=== PATIENT | male | born 1985 | race Caucasian/White ===

== ENCOUNTER 2017-06-12 15:42 | Emergency (ER) | payer MEDICAID ==
[~2017-06-12] VITALS: Ht 185.4 cm; Wt 181.4 kg
[2017-06-12] MEDS ORDERED: IBUPROFEN 800800 MG PO (16:19)
[2017-06-12] MEDS ORDERED: AMOXICILLIN875 MG PO (16:19)
[2017-06-12 16:29] VITALS: BP 160/99
== END 2017-06-12 16:30 | disposition home or self-care (01) ==
LOC: M.ERS 15:42
DX: H66.91 Otitis media, unspecified, right ear (principal)

== ENCOUNTER 2017-08-31 21:58 | Emergency (ER) | payer MEDICAID ==
[~2017-08-31] VITALS: Ht 185.4 cm; Wt 181.4 kg
[~2017-08-31 21:58] MED LIST: AMOXICILLIN875 MG PO; IBUPROFEN 800800 MG PO
[2017-08-31 23:11] LABS: ABSOLUTE BASOPHILS 0.1 thou/uL (0.0-0.2); ABSOLUTE EOSINOPHILS 0.3 thou/uL (0.0-0.7); ABSOLUTE LYMPHOCYTES 1.7 thou/uL (0.8-5.3); ABSOLUTE MONOCYTES 0.9 thou/uL (0.0-1.2); ABSOLUTE NEUTROPHILS 4.9 thou/uL (1.6-8.1); BASOPHILS 0.7 %; EOSINOPHILS 3.5 %; HEMATOCRIT 40.4 % (42.0-52.0); HEMOGLOBIN 13.6 gm/dL (14.0-18.0); MCH 29.5 pg (26.0-34.0); MCHC 33.6 g/dL (28.0-37.0); MONOCYTES 11.5 %; MPV 7.7 fl. (7.2-11.1); NUCLEATED RBCS 0 /100WBC; PLATELET COUNT* 244 thou/uL (150-400); POLYS 62.3 %; RBC 4.59 mil/uL (4.50-6.00); RDW-CV 13.8 % (10.5-14.5); WBC 7.9 thou/uL (4.0-11.0)
[2017-08-31 23:13] LABS: CALCIUM 9.4 mg/dL (8.5-10.1); POTASSIUM 3.8 mmol/L (3.5-5.1)
[2017-08-31 23:20] LABS: ALBUMIN 3.5 g/dL (3.4-5.0); TOTAL BILIRUBIN 0.3 mg/dL (<0.1-1.0); TOTAL PROTEIN 7.3 g/dL (6.4-8.2)
[2017-09-01] MEDS ORDERED: APAP650 PO (00:42)
[2017-09-01] MEDS ORDERED: IBUPROFEN 800800 MG PO (00:42)
[2017-09-01 01:05] VITALS: BP 120/80
[2017-09-01] MEDS ORDERED: AMOXICILLIN875 MG PO (02:15)
== END 2017-09-01 01:06 | disposition home or self-care (01) ==
LOC: M.ERS 21:58
PROVIDERS: Emergency Medicine
DX: R50.9 Fever, unspecified (principal)

== ENCOUNTER 2017-09-03 10:22 | Emergency (ER) | payer MEDICAID ==
[~2017-09-03] VITALS: Ht 188 cm; Wt 181.4 kg
[~2017-09-03 10:22] MED LIST changes: +APAP650 PO
[2017-09-03] MEDS ORDERED: AUGMENTIN 875-1 EACH PO (12:24)
[2017-09-03] MEDS ORDERED: BUTALB-APAP-CA1 EACH PO (12:24)
[2017-09-03 12:49] VITALS: BP 109/55
== END 2017-09-03 12:49 | disposition home or self-care (01) ==
LOC: M.ERS 10:22
DX: J32.0 Chronic maxillary sinusitis (principal)

== ENCOUNTER 2018-01-02 23:59 | Emergency (ER) | payer MEDICAID ==
[~2018-01-02] VITALS: Ht 185.4 cm; Wt 181.4 kg
[~2018-01-02 23:59] MED LIST changes: +AUGMENTIN 875-1 EACH PO; +BUTALB-APAP-CA1 EACH PO
[2018-01-03] MEDS ORDERED: PREDNISONE 20 M20 M1 PO (00:21)
[2018-01-03] MEDS ORDERED: ELIMITE60 GM TOP (00:21)
[2018-01-03] MEDS ORDERED: IBUPROFEN 800800 MG PO (00:21)
[2018-01-03 00:45] VITALS: BP 139/83
== END 2018-01-03 00:48 | disposition home or self-care (01) ==
LOC: M.ERS 23:59
DX: F42.4 Excoriation (skin-picking) disorder (principal); L29.9 Pruritus, unspecified

== ENCOUNTER 2018-02-26 10:54 | Emergency (ER) | payer MEDICAID ==
[~2018-02-26] VITALS: Ht 188 cm; Wt 204.1 kg
[~2018-02-26 10:54] MED LIST changes: +ELIMITE60 GM TOP; +PREDNISONE 20 M20 M1 PO
[2018-02-26 10:58] VITALS: BP 133/76
[2018-02-26] MEDS ORDERED: KEFLEX500 M1 PO (11:18)
[2018-02-26] MEDS ORDERED: IBUPROFEN 800800 M1 PO (11:18)
[2018-02-26] MEDS ORDERED: ACETAMINOPHEN-1 EAC1 PO (11:18)
== END 2018-02-26 11:20 | disposition home or self-care (01) ==
LOC: M.ERS 10:54
DX: J02.9 Acute pharyngitis, unspecified (principal); H92.01 Otalgia, right ear

== ENCOUNTER 2018-08-28 02:11 | Emergency (ER) | payer MEDICAID ==
[~2018-08-28] VITALS: Ht 188 cm; Wt 181.4 kg
[~2018-08-28 02:11] MED LIST changes: +ACETAMINOPHEN-1 EAC1 PO; +IBUPROFEN 800800 M1 PO; +KEFLEX500 M1 PO
[2018-08-28 02:54] LABS: ABSOLUTE BASOPHILS 0.1 thou/uL (0.0-0.2); ABSOLUTE EOSINOPHILS 0.3 thou/uL (0.0-0.7); ABSOLUTE LYMPHOCYTES 3.3 thou/uL (0.8-5.3); ABSOLUTE MONOCYTES 0.8 thou/uL (0.0-1.2); ABSOLUTE NEUTROPHILS 6.9 thou/uL (1.6-8.1); BASOPHILS 0.6 %; EOSINOPHILS 2.9 %; HEMATOCRIT 38.4 % (42.0-52.0); LYMPHOCYTES 29.3 %; MCHC 33.9 g/dL (28.0-37.0); MCV 85.7 fL (80.0-100.0); MONOCYTES 6.7 %; MPV 8.1 fl. (7.2-11.1); NUCLEATED RBCS 0 /100WBC; PLATELET COUNT* 278 thou/uL (150-400); POLYS 60.5 %; RBC 4.48 mil/uL (4.50-6.00); RDW-CV 13.7 % (10.5-14.5); WBC 11.4 thou/uL (4.0-11.0)
[2018-08-28 03:00] LABS: ANION GAP 7 mmol/L (7-16); BUN 15 mg/dL (7-18); CALCIUM 8.5 mg/dL (8.5-10.1); CHLORIDE 106 mmol/L (98-107); CO2 29 mmol/L (21-32); CREATININE 0.9 mg/dL (0.6-1.3); GLUCOSE 154 mg/dL (70-99); POTASSIUM 3.9 mmol/L (3.5-5.1); SODIUM 142 mmol/L (136-145)
[2018-08-28 03:11] LABS: ALBUMIN 3.2 g/dL (3.4-5.0); ALKALINE PHOSPHATASE 104 U/L (46-116); LIPASE 99 U/L (73-393); NT-PRO BRAIN NAT PEPTIDE 349 pg/mL (<300); SGOT 14 U/L (15-37); SGPT 32 U/L (30-65); TOTAL BILIRUBIN 0.3 mg/dL (<0.1-1.0); TOTAL PROTEIN 6.5 g/dL (6.4-8.2); TROPONIN-I LEVEL <0.06 ng/mL (<0.06)
[2018-08-28] MEDS ORDERED: PROAIR HFA8.5 GM INH (03:35)
[2018-08-28 03:58] VITALS: BP 179/87
--- NOTE | 2018-08-30 13:26 | EKG ---
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
== END 2018-08-28 04:11 | disposition home or self-care (01) ==
LOC: M.ERS 02:11
PROVIDERS: Emergency Medicine
DX: R06.00 Dyspnea, unspecified (principal); R06.02 Shortness of breath

== ENCOUNTER 2018-10-15 00:58 | Emergency (ER) | payer MEDICAID ==
[~2018-10-15] VITALS: Ht 188 cm; Wt 181.4 kg
[~2018-10-15 00:58] MED LIST changes: +PROAIR HFA8.5 GM INH
[2018-10-15] MEDS ORDERED: AUGMENTIN 875-1 EACH PO (01:23)
[2018-10-15 01:25] VITALS: BP 148/89
[2018-10-16] MEDS ORDERED: CLEOCIN HCL300 MG PO (15:58)
[2018-10-16] MEDS ORDERED: HYDROXYZINE HCL25 M1 PO (15:58)
[2018-10-16] MEDS ORDERED: PREDNISONE50 MG PO (15:58)
[2018-10-16] MEDS ORDERED: IBUPROFEN 800800 M1 PO (16:16)
== END 2018-10-15 01:42 | disposition home or self-care (01) ==
LOC: M.ERS 00:58
DX: J02.9 Acute pharyngitis, unspecified (principal)

== ENCOUNTER 2018-10-16 15:24 | Emergency (ER) | payer MEDICAID ==
[~2018-10-16] VITALS: Ht 188 cm; Wt 181.4 kg
[2018-10-16 15:36] VITALS: BP 152/94
[2018-10-16] MEDS ORDERED: PREDNISONE50 MG PO (15:58)
[2018-10-16] MEDS ORDERED: CLEOCIN HCL300 MG PO (15:58)
[2018-10-16] MEDS ORDERED: HYDROXYZINE HCL25 M1 PO (15:58)
[2018-10-16] MEDS ORDERED: IBUPROFEN 800800 M1 PO (16:16)
== END 2018-10-16 16:20 | disposition home or self-care (01) ==
LOC: M.ERS 15:24
DX: L27.0 Generalized skin eruption due to drugs and medicaments taken internally (principal); T36.0X5A Adverse effect of penicillins, initial encounter; L30.9 Dermatitis, unspecified; Y92.9 Unspecified place or not applicable

== ENCOUNTER 2018-12-22 13:03 | Emergency (ER) | payer MEDICAID ==
[~2018-12-22] VITALS: Ht 188 cm; Wt 181.4 kg
[~2018-12-22 13:03] MED LIST changes: +CLEOCIN HCL300 MG PO; +HYDROXYZINE HCL25 M1 PO; +PREDNISONE50 MG PO
[2018-12-22] MEDS ORDERED: AFRIN15 ML NS (14:12)
[2018-12-22] MEDS ORDERED: CLARITIN10 MG PO (14:12)
[2018-12-22] MEDS ORDERED: MEDROLDOSEPACK PO (14:13)
[2018-12-22] MEDS ORDERED: IBUPROFEN 800800 M1 PO (14:16)
[2018-12-22 14:20] VITALS: BP 151/87
== END 2018-12-22 14:20 ==
LOC: M.ERS 13:03
DX: S30.861A Insect bite (nonvenomous) of abdominal wall, initial encounter (principal); L72.3 Sebaceous cyst; J06.9 Acute upper respiratory infection, unspecified; W57.XXXA Bitten or stung by nonvenomous insect and other nonvenomous arthropods, initial encounter; Y92.89 Other specified places as the place of occurrence of the external cause; Y93.89 Activity, other specified; Y99.8 Other external cause status

== ENCOUNTER 2019-04-19 14:07 | Emergency (ER) | payer MEDICAID ==
[~2019-04-19] VITALS: Ht 188 cm; Wt 181.4 kg
[~2019-04-19 14:07] MED LIST changes: +AFRIN15 ML NS; +CLARITIN10 MG PO; +MEDROLDOSEPACK PO
[2019-04-19] MEDS ORDERED: MEDROLDOSEPACK PO (15:32)
[2019-04-19 15:43] VITALS: BP 151/88
[2019-04-19] MEDS ORDERED: TRAMADOL 50 MG50 MG PO (15:45)
== END 2019-04-19 15:46 | disposition home or self-care (01) ==
LOC: M.ERS 14:07
DX: S76.011A Strain of muscle, fascia and tendon of right hip, initial encounter (principal); M54.5 Low back pain; Z88.0 Allergy status to penicillin; X58.XXXA Exposure to other specified factors, initial encounter; Y93.89 Activity, other specified; Y92.89 Other specified places as the place of occurrence of the external cause; Y99.8 Other external cause status

== ENCOUNTER 2019-09-14 21:36 | Emergency (ER) | payer MEDICAID ==
[~2019-09-14] VITALS: Ht 185.4 cm; Wt 181.4 kg
[~2019-09-14 21:36] MED LIST changes: +TRAMADOL 50 MG50 MG PO
[2019-09-14] MEDS ORDERED: ADDERALL XR 3030 MG PO (21:57)
[2019-09-14] MEDS ORDERED: LORCET 5-325 M1 EACH PO (21:57)
[2019-09-14] MEDS ORDERED: FLEXERIL PO (23:17)
[2019-09-14] MEDS ORDERED: TORADOL 10 MG T10 MG PO (23:17)
[2019-09-14 23:39] VITALS: BP 155/97
== END 2019-09-14 23:40 | disposition home or self-care (01) ==
LOC: M.ERS 21:36
DX: S39.012A Strain of muscle, fascia and tendon of lower back, initial encounter (principal); Z88.0 Allergy status to penicillin; W01.0XXA Fall on same level from slipping, tripping and stumbling without subsequent striking against object, initial encounter; Y93.89 Activity, other specified; Y92.512 Supermarket, store or market as the place of occurrence of the external cause; Y99.9 Unspecified external cause status

== ENCOUNTER 2019-11-12 14:28 | Inpatient (IN) | payer MEDICAID ==
[~2019-11-12] VITALS: Ht 188 cm; Wt 181.4 kg
[~2019-11-12 14:28] MED LIST changes: +ADDERALL XR 3030 MG PO; +FLEXERIL PO; +LORCET 5-325 M1 EACH PO; +TORADOL 10 MG T10 MG PO
[2019-11-12 14:30] VITALS: BP 141/88
[2019-11-12] MEDS ORDERED: TYLENOL325 M1 (14:44)
[2019-11-12] MEDS ORDERED: ADVIL200 M1 PO (14:44)
[2019-11-12] MEDS ORDERED: PROAIR HFA8.5 GM INH (14:51)
[2019-11-12 14:56] LABS: ABSOLUTE LYMPHOCYTES 1.5 thou/uL (0.8-5.3); ABSOLUTE MONOCYTES 0.6 thou/uL (0.0-1.2); ABSOLUTE NEUTROPHILS 4.6 thou/uL (1.6-8.1); BASOPHILS 0.6 %; EOSINOPHILS 0.6 %; LYMPHOCYTES 21.9 %; MCH 29.7 pg (26.0-34.0); MCHC 34.1 g/dL (28.0-37.0); MCV 87.1 fL (80.0-100.0); MONOCYTES 9.1 %; MPV 7.5 fl. (7.2-11.1); NUCLEATED RBCS 0 /100WBC; PLATELET COUNT* 203 thou/uL (150-400); POLYS 67.8 %; RBC 4.37 mil/uL (4.50-6.00); RDW-CV 13.7 % (10.5-14.5); WBC 6.8 thou/uL (4.0-11.0)
[2019-11-12 15:03] LABS: CALCIUM 8.2 mg/dL (8.5-10.1); CREATININE 1.2 mg/dL (0.6-1.3); POTASSIUM 3.7 mmol/L (3.5-5.1)
[2019-11-12 15:08] LABS: ALBUMIN 3.2 g/dL (3.4-5.0); TOTAL BILIRUBIN 0.4 mg/dL (<0.1-1.0); TOTAL PROTEIN 6.9 g/dL (6.4-8.2)
[2019-11-12 15:09] LABS: PROTIME 10.6 Seconds (9.20-11.50)
[2019-11-12 15:17] LABS: INFLUENZA A ANTIGEN Negative (Negative); INFLUENZA B ANTIGEN Negative (Negative)
[2019-11-12 15:54] LABS: BE -0.7 mmol/L (-2 to +3); PCO2 43.3 mmHg (35.0-45.0); PO2 112.3 mmHg (75.0-100.0); pH 7.374 (7.340-7.450)
[2019-11-12 16:35] VITALS: BP 106/54
[2019-11-12 17:00] VITALS: BP 127/80
[2019-11-12 17:50] LABS: URINE BILIRUBIN NEGATIVE (Negative); URINE BLOOD NEGATIVE (Negative); URINE CLARITY CLEAR; URINE COLOR YELLOW; URINE GLUCOSE-RANDOM 1+ (Negative); URINE KETONES NEGATIVE (Negative); URINE LEUKOCYTES-REFLEX NEGATIVE (Negative); URINE NITRITE-REFLEX NEGATIVE (Negative); URINE PROTEIN NEGATIVE (Negative); URINE UROBILINOGEN 0.2 E.U./dl (0.2-1.0)
[2019-11-12 19:50] VITALS: BP 137/92
[2019-11-13 00:12] VITALS: BP 138/85
[2019-11-13 04:00] VITALS: BP 130/78
[2019-11-13 04:22] LABS: HEMATOCRIT 38.8 % (42.0-52.0); HEMOGLOBIN 13.3 gm/dL (14.0-18.0); MCH 29.7 pg (26.0-34.0); MCHC 34.3 g/dL (28.0-37.0); MCV 86.5 fL (80.0-100.0); MPV 7.8 fl. (7.2-11.1); RBC 4.48 mil/uL (4.50-6.00); WBC 3.9 thou/uL (4.0-11.0)
[2019-11-13 04:49] LABS: ALBUMIN 3.1 g/dL (3.4-5.0); CALCIUM 8.7 mg/dL (8.5-10.1); CREATININE 1.2 mg/dL (0.6-1.3); MAGNESIUM 1.9 mg/dL (1.8-2.4); POTASSIUM 4.2 mmol/L (3.5-5.1); TOTAL BILIRUBIN 0.3 mg/dL (<0.1-1.0); TOTAL PROTEIN 7.1 g/dL (6.4-8.2)
[2019-11-13 08:55] VITALS: BP 136/80
[2019-11-13 20:00] VITALS: BP 131/71
[2019-11-14 05:06] LABS: GLYCOHEMOGLOBIN (HGB A1C) 7.8 % (4.8-5.6)
--- NOTE | 2019-11-14 09:26 | EKG ---
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 : 1985 Requested By: Patrice Will Order Number: [id number] MD: Bryce Hogan Measurements Intervals [place] Rate: 114 P: 32 ND: 172 QRS: 179 QRSD: 107 T: 52 QT: 343 QTc: 473 Interpretive Statements Sinus tachycardia Consider right ventricular hypertrophy Probable septal infarct, old Baseline wander in lead(s) II Compared to ECG 08/28/2018 02:22:32 Sinus rhythm no longer present Electronically Signed On 11-14-2019 9:26:16 CDT by Bryce Hogan [email or web address] <ELECTRONICALLY SIGNED> By: Bryce Hogan MD, FACC 11/14/19 0926 1435 1435 Bryce Hogan MD, FAC /EPI
== END 2019-11-13 22:15 | disposition left against medical advice (07) | DRG 871 ==
LOC: M.ERS 14:28 → M.2W 15:53 → M.TBA-ER 15:53 → M.2W 16:45
PROVIDERS: Nurse Practitioner Psychiatric/Mental Health; ADMIT Internal Medicine; ATTEND Internal Medicine
DX: A41.89 Other specified sepsis (principal); U07.1 COVID-19; J12.89 Other viral pneumonia; Z68.43 Body mass index [BMI] 50.0-59.9, adult; E11.65 Type 2 diabetes mellitus with hyperglycemia; E66.01 Morbid (severe) obesity due to excess calories; G47.33 Obstructive sleep apnea (adult) (pediatric); R06.03 Acute respiratory distress; R09.02 Hypoxemia; R00.0 Tachycardia, unspecified; Z79.899 Other long term (current) drug therapy; Z88.0 Allergy status to penicillin

== ENCOUNTER 2020-02-12 08:49 | Emergency (ER) | payer MEDICAID ==
[~2020-02-12] VITALS: Ht 188 cm; Wt 181.4 kg
[~2020-02-12 08:49] MED LIST changes: +ADVIL200 M1 PO; +TYLENOL325 M1
[2020-02-12 10:05] LABS: ABSOLUTE BASOPHILS 0.1 thou/uL (0.0-0.2); ABSOLUTE EOSINOPHILS 0.3 thou/uL (0.0-0.7); ABSOLUTE LYMPHOCYTES 2.5 thou/uL (0.8-5.3); ABSOLUTE MONOCYTES 1.2 thou/uL (0.0-1.2); ABSOLUTE NEUTROPHILS 7.3 thou/uL (1.6-8.1); BASOPHILS 1.1 %; EOSINOPHILS 2.8 %; HEMATOCRIT 37.5 % (42.0-52.0); HEMOGLOBIN 12.2 gm/dL (14.0-18.0); LYMPHOCYTES 21.6 %; MCH 28.4 pg (26.0-34.0); MCHC 32.6 g/dL (28.0-37.0); MCV 87.3 fL (80.0-100.0); MONOCYTES 10.6 %; MPV 7.5 fl. (7.2-11.1); NUCLEATED RBCS 0 /100WBC; PLATELET COUNT* 251 thou/uL (150-400); POLYS 63.9 %; RDW-CV 14.5 % (10.5-14.5); WBC 11.4 thou/uL (4.0-11.0)
[2020-02-12 10:09] LABS: CALCIUM 9.2 mg/dL (8.5-10.1); POTASSIUM 4.1 mmol/L (3.5-5.1)
[2020-02-12] MEDS ORDERED: BACTRIM DS TAB1 EAC1 PO (11:53)
[2020-02-12] MEDS ORDERED: NORCO 5-325 TA1 EAC2 PO (11:53)
[2020-02-12 12:04] VITALS: BP 152/86
== END 2020-02-12 12:05 | disposition home or self-care (01) ==
LOC: M.ERS 08:49
PROVIDERS: Emergency Medicine Emergency Medical Services
DX: L02.215 Cutaneous abscess of perineum (principal); E66.9 Obesity, unspecified; Z68.43 Body mass index [BMI] 50.0-59.9, adult; Z88.0 Allergy status to penicillin

== ENCOUNTER 2020-02-14 08:54 | Emergency (ER) | payer MEDICAID ==
[~2020-02-14 08:54] MED LIST changes: +BACTRIM DS TAB1 EAC1 PO; +NORCO 5-325 TA1 EAC2 PO
== END 2020-02-14 09:06 | disposition left against medical advice (07) ==
LOC: M.ERS 08:54
DX: Z48.00 Encounter for change or removal of nonsurgical wound dressing (principal); Z53.21 Procedure and treatment not carried out due to patient leaving prior to being seen by health care provider

== ENCOUNTER 2020-02-15 09:34 | Emergency (ER) | payer MEDICAID ==
[~2020-02-15] VITALS: Ht 188 cm; Wt 181.4 kg
[2020-02-15 10:31] VITALS: BP 150/93
== END 2020-02-15 10:32 | disposition home or self-care (01) ==
LOC: M.ERS 09:34
DX: Z48.01 Encounter for change or removal of surgical wound dressing (principal); E66.9 Obesity, unspecified; Z88.0 Allergy status to penicillin

== ENCOUNTER 2021-05-19 23:18 | Emergency (ER) | payer MEDICAID ==
[~2021-05-19] VITALS: Ht 188 cm; Wt 181.4 kg
[2021-05-19] MEDS ORDERED: HYDROCHLOROTH12.5 M1 PO (23:25)
[2021-05-19] MEDS ORDERED: CETIRIZINE1 MG/1 ML PO (23:26)
[2021-05-20] MEDS ORDERED: APAP W/CODEINE1 TA2 PO (00:35)
[2021-05-20] MEDS ORDERED: CEPHALEXIN 250250 M1 PO (00:35)
[2021-05-20 00:40] VITALS: BP 168/98
== END 2021-05-20 00:40 | disposition home or self-care (01) ==
LOC: M.ERS 23:18
DX: H92.03 Otalgia, bilateral (principal); E66.9 Obesity, unspecified; Z68.43 Body mass index [BMI] 50.0-59.9, adult; Z88.0 Allergy status to penicillin